=== PATIENT | male | born 1985 | race Caucasian/White ===

== ENCOUNTER 2016-09-16 17:38 | Emergency (ER) | payer OTHER ==
--- NOTE | 2016-09-16 18:30 | CT ---
EXAMINATION:CT SCAN HEAD W/O CONTRAST. CLINICAL INDICATION:Headache COMPARISON:None TECHNIQUE: A Cranial CT was performed using a [employer] multislice CT scanner. Axial images were acquired from just above the vertex through the skull base. 4 mm stacked axial, sagittal, and coronal reconstructed images were reviewed. FINDINGS: The CSF-containing spaces are within normal limits. The morales/white matter attenuation characteristics are within normal limits. No acute intracranial hemorrhage or extra-axial fluid collections are identified.:There is no mass effect or midline shift. The posterior fossa is unremarkable. The cerebellar pontine angle cisterns are normal and symmetric. The osseous structures are intact. The paranasal sinuses are unremarkable. The orbits and retrobulbar regions are unremarkable.:The mastoid sinuses are clear. The scalp and adjacent soft tissues are unremarkable. IMPRESSION: Normal noncontrast cranial CT. The findings were uploaded to the electronic medical record for review at approximately 6:30 PM 09/16/2016
== END 2016-09-16 19:29 | disposition home or self-care (01) ==
LOC: ED 17:38
DX: R20.9 Unspecified disturbances of skin sensation (principal); R51 Headache